=== PATIENT | male | born 1965 | race Caucasian/White ===

== ENCOUNTER 2018-09-14 12:04 | Inpatient (IN) | payer OTHER ==
[2018-09-14 12:09] VITALS: BMI 29.5
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
[2018-09-14] MEDS ORDERED: ACETAMINOPHEN 325 MG TABLET (FP) PO PRN (13:04)
[2018-09-14] MEDS ORDERED: MAG HYDROX/AL HYDROX/SIMETH 30 ML UNIT-DOSE CUP PO PRN (13:04)
[2018-09-14] MEDS ORDERED: LOPERAMIDE HCL 2 MG CAPSULE PO PRN (13:04)
[2018-09-14] MEDS ORDERED: chlordiazePOXIDE HCL 25 MG CAPSULE PO PRN (13:04)
[2018-09-14] MEDS ORDERED: guaiFENesin/D-METHORPHAN HB 10 ML UNIT-DOSE CUPS PO PRN (13:04)
[2018-09-14] MEDS ORDERED: hydrOXYzine PAMOATE 50 MG CAPSULE (FP) PO PRN (13:04)
[2018-09-14] MEDS ORDERED: MAGNESIUM HYDROX 2400MG/30ML ORAL SUSPENSION 30 ML CUP PO PRN (13:04)
[2018-09-14] MEDS ORDERED: MAGNESIUM CITRATE 300 ML BOTTLE PO PRN (13:04)
[2018-09-14] MEDS ORDERED: P-EPHED 60MG/TRIPROLIDI 2.5MG TABLET PO PRN (13:04)
[2018-09-14] MEDS ORDERED: IBUPROFEN 400 MG TABLET (FP) PO PRN (13:04)
[2018-09-14] MEDS ORDERED: MENTHOL/PHENOL 1 EACH UD MM PRN (13:04)
--- NOTE | 2018-09-14 14:01 | EKG ---
Test Reason : Blood Pressure : / mmHG Vent. Rate : 110 BPM Atrial Rate : 110 BPM P-R Int : 134 ms QRS Dur : 092 ms QT Int : 342 ms P-R-T Axes : 068 042 048 degrees QTc Int : 462 ms SINUS TACHYCARDIA OTHERWISE NORMAL ECG NO PREVIOUS ECGS AVAILABLE Confirmed by MD Esdras, Alvarez ([id number]) on 09/14/2018 2:00:45 PM Referred By: Confirmed By:Alvarez Dewitt MD
[2018-09-14] MEDS ORDERED: chlordiazePOXIDE HCL 25 MG CAPSULE PO SCH (17:00)
[2018-09-14 17:35] VITALS: BP 145/96; PULSE 101; TEMP 96.2
--- NOTE | 2018-09-14 18:48 | DS ---
[facility] Detox Discharge Summary Admission Date: 09/14/18 Discharge Date: 09/14/18 - History Present History: Alcohol Dependence Additional Comments: Patient left AMA. Patient to follow up with attached referrals. If worsening symptoms are present patient to seek medical attention or go to local ED. - Physical Exam Results Vital Signs: Vital Signs Temperature 96.2 F L 09/14/18 17:34 Pulse Rate 101 H 09/14/18 17:34 Respiratory Rate 16 09/14/18 17:34 Blood Pressure 145/96 09/14/18 17:34 O2 Sat by Pulse Oximetry (%) - Medication Discharge Medications: Ambulatory Orders Clonazepam [Klonopin] 2 mg PO HS 06/19/18 - Diagnosis (1) Alcohol dependence with uncomplicated intoxication Status: Acute (2) Gynecomastia, male Status: Acute (3) Herniated disc Status: Acute (4) Insomnia Status: Acute (5) Use of cane as ambulatory aid Status: Chronic - AMA Did Patient Leave Against Medical Advice: Yes
--- NOTE | 2018-09-14 18:49 | PN ---
S Progress Note Note: Patient left AMA, no longer wishes to continue detox. Patient to follow up with attached referrals if additional symptoms are present patient to seek medical attention.
[2018-09-14] MEDS ORDERED: THIAMINE HCL 100 MG TABLET (FP) PO SCH (22:00)
[2018-09-14] MEDS ORDERED: MELATONIN 5 MG TABLETS PO PRN (22:00)
[2018-09-15] MEDS ORDERED: PRENATAL VITAMINS W/ FOLIC ACID TABLET (FP) PO SCH (10:00)
[2018-09-15] MEDS ORDERED: chlordiazePOXIDE HCL 25 MG CAPSULE PO SCH (17:00)
[2018-09-16] MEDS ORDERED: chlordiazePOXIDE 5 MG CAPSULE PO SCH (17:00)
[2018-09-17] MEDS ORDERED: chlordiazePOXIDE HCL 10 MG CAPSULE PO SCH (17:00)
== END 2018-09-14 18:16 | disposition left against medical advice (07) | DRG 770 ==
LOC: YASAS 12:04 → Y3N 12:53
PROVIDERS: ADMIT Surgery; ATTEND Surgery
PROC: HZ2ZZZZ Detoxification Services for Substance Abuse Treatment (ICD-10-PCS; principal; 2018-09-14)
DX: F10.230 Alcohol dependence with withdrawal, uncomplicated (principal); F32.9 Major depressive disorder, single episode, unspecified; F41.8 Other specified anxiety disorders; F51.05 Insomnia due to other mental disorder; M51.26 Other intervertebral disc displacement, lumbar region; N62 Hypertrophy of breast; Z91.5 Personal history of self-harm; Z88.8 Allergy status to other drugs, medicaments and biological substances; V89.2XXS Person injured in unspecified motor-vehicle accident, traffic, sequela
CPT/HCPCS: 93005; 93010